=== PATIENT | female | born 1980 | race African-American/Black ===

== ENCOUNTER 2017-06-11 22:46 | Emergency (ER) | payer MEDICAID, OTHER ==
[~2017-06-11] VITALS: Ht 157.5 cm; Wt 104.0 kg
[~2017-06-11 22:46] MED LIST: IBUP600 PO; OXYC1SOL5 PO; PRENTAB8
[2017-06-11 22:47] VITALS: BP 138/87; PULSE 102; RESP 18; TEMP 98.5; O2SAT 97
== END 2017-06-12 01:40 | disposition left against medical advice (07) ==
LOC: NED 22:46
DX: R06.02 Shortness of breath (principal); Z53.21 Procedure and treatment not carried out due to patient leaving prior to being seen by health care provider
CPT/HCPCS: 99281

== ENCOUNTER 2017-07-21 22:37 | Observation (INO) | payer OTHER ==
[~2017-07-21] VITALS: Ht 154.9 cm; Wt 109.5 kg
[2017-07-21 22:39] VITALS: BP 134/80; PULSE 115; RESP 24; TEMP 98.6; O2SAT 93
[2017-07-21] MEDS ORDERED: ETON1IMP I-DERMAL (22:49)
[2017-07-21] MEDS: RESP: ALBUTEROL 2.5 MG/IPRATROPIUM 0.5 MG NEB (SCH) INH ×2 (23:28→23:29)
[2017-07-21 23:30] VITALS: O2SAT 97
[2017-07-21] MEDS ORDERED: methylPREDNISolone SOD SUCC 125 MG/2 ML VIAL IVP ONE (23:30)
[2017-07-21] MEDS ORDERED: SODIUM CHLORIDE 0.9% FLUSH 10 ML FLUSH IVF PRN (23:30)
[2017-07-21 23:31] VITALS: BP 137/90; PULSE 107; RESP 18; O2SAT 97
[2017-07-21 23:32] VITALS: O2SAT 97
[2017-07-21] MEDS ORDERED: ALLE60TA PO (23:32)
[2017-07-21 23:50] LABS: BASOPHIL # 0.1 TH/MM3 (0-0.2); BASOPHIL % 0.3 % (0.0-2.0); EOSINOPHIL # 0.2 TH/MM3 (0-0.4); EOSINOPHIL % 0.9 % (0.0-4.0); HEMATOCRIT 38.7 % (35.0-46.0); HEMO FLAGS DIFF FINAL; LYMPH % 7.1 % (9.0-44.0); LYMPHOCYTE # 1.5 TH/MM3 (1.0-4.8); MEAN CORPUSCULAR HEMOGLOBIN 26.8 PG (27.0-34.0); MEAN CORPUSCULAR HGB CONC 32.7 % (32.0-36.0); MONO % 3.7 % (0.0-8.0); PLATELET COUNT 247 TH/MM3 (150-450); RED BLOOD COUNT 4.72 MIL/MM3 (4.00-5.30); RED CELL DISTRIBUTION WIDTH 15.8 % (11.6-17.2); WHITE BLOOD COUNT 21.6 TH/MM3 (4.0-11.0)
--- NOTE | 2017-07-22 00:06 | RADRPT ---
EXAM DATE/TIME: 07/21/2017 23:32 [place] COMPARISON: No previous studies available for comparison. INDICATIONS : Shortness of breath. MEDICAL HISTORY : None. SURGICAL HISTORY : None. ENCOUNTER: Initial ACUITY: 1 day PAIN SCORE: 0/10 LOCATION: Bilateral chest FINDINGS: A single view of the chest demonstrates the lungs to be symmetrically aerated without evidence of mas s, infiltrate or effusion. The cardiomediastinal contours are unremarkable. Osseous structures are intact. CONCLUSION: No evidence of acute cardiopulmonary disease. Alvarez Ferguson MD on July 22, 2017 at 0:04 Board Certified Radiologist. This report was verified electronically.
[2017-07-22 00:17] LABS: MAGNESIUM 1.7 MG/DL (1.5-2.5); POTASSIUM 3.9 MEQ/L (3.5-5.1)
[2017-07-22] MEDS ORDERED: SODIUM CHLOR 0.9% 1000 ML INJ 1,000 ML IV ONE ×2 (01:00→02:15)
[2017-07-22] MEDS ORDERED: RESP: ALBUTEROL 2.5 MG/IPRATROPIUM 0.5 MG NEB (SCH) NEB ONE (01:00)
[2017-07-22] MEDS ORDERED: cefTRIAXone INJ 1,000 MG in SODIUM CHLORIDE 0.9% INJ 100 ML IV ONE ×2 (01:00→02:15)
[2017-07-22 02:02] LABS: BLOOD, URINE SMALL (NEG); COMMENT (UR) CULT NOT INDICATED; GLUCOSE,URINE NEG (NEG); KETONE, URINE NEG (NEG); MUCUS URINE FEW /lpf (OCC); NITRITE,URINE NEG (NEG); SQUAMOUS EPITHELIAL CELL URINE <1 /hpf (0-5); URINE COLOR LIGHT-YELLOW (YELLW/STRAW)
[2017-07-22 02:03] LABS: CULTURE IF INDICATED CULT NOT INDICATED
--- NOTE | 2017-07-22 02:14 | PD ---
HPI Chief Complaint: Respiratory Symptoms Time Seen by Provider: 23:18 Travel History International Travel<30 days: No Contact w/Intl Traveler<30days: No Traveled to known affect area: No History of Present Illness HPI 37 year-old female presents to the emergency department by private transportation for complaint of difficulty with breathing and wheezing. Patient reports that she has a history of environmental allergens but denies personal history of asthma. Patient is a nonsmoker. Patient states she has a nexplanon and is not having pleuritic chest pain or hemoptysis. Patient was recently seen by her primary care provider within the last 3 weeks and was placed on a course of oral antibiotic and 6 days of steroid therapy. Patient has been off medication 2 weeks and symptoms are worsened in the last few days. Patient states that she has had wheezing briefly in the past but this episode has been more persistent and worsening to now that she presents to the emergency department for further evaluation. No chest pain no abdominal pain no flank pain. Patient also denies any recent long distance travel protracted bedrest her surgical procedure. [facility] Past Medical History Narrative Medical Clinical obesity no tobacco use nursing notes reviewed Medical History: Denies Significant Hx Influenza Vaccination: No ?: Not LMP: 06/22/2017 Past Surgical History Section: Yes (X2) Social History Alcohol Use: Yes (ONCE WEEKLY) Tobacco Use: No Substance Use: No Allergies-Medications (Allergen,Severity, Reaction): Coded Allergies: No Known Allergies (Unverified , 07/21/17) Reported Meds & Prescriptions Reported Meds & Active Scripts Active Reported Ditpi Allergy (Fexofenadine HCl) 60 Mg Tab 60 Mg PO BID Nexplanon Implant (Etonogestrel Implant) 68 Mg Imp 68 Mg I-DERMAL ONCE Review of Systems Except as stated in HPI: all other systems reviewed are Neg Physical Exam Narrative GENERAL: Well-developed well-nourished female in moderate respiratory distress. SKIN: Warm and dry. HEAD: Normocephalic. EYES: No scleral icterus. No injection or drainage. NECK: Supple, trachea midline. No JVD or lymphadenopathy. CARDIOVASCULAR: Regular rate and rhythm without murmurs, gallops, or rubs. RESPIRATORY: Breath sounds equal bilaterally with diffuse wheezing to auscultation to all graves. No accessory muscle use. GASTROINTESTINAL: Abdomen soft, non-tender, nondistended. MUSCULOSKELETAL: No cyanosis, or edema. BACK: Nontender without obvious deformity. No CVA tenderness. Data Data Last Documented VS Vital Signs Date Time Temp Pulse Resp B/P (MAP) Pulse Ox O2 Delivery O2 Flow Rate FiO2 07/22/17 02:20 101 20 140/86 (104) 93 Nasal Cannula 2.00 07/21/17 22:39 98.6 Orders Orders Complete Blood Count With Diff (07/21/17 23:18) Basic Metabolic Panel (Bmp) (07/21/17 23:18) Magnesium (Mg) (07/21/17 23:18) Iv Access Insert/Monitor (07/21/17 23:18) Ecg Monitoring (07/21/17 23:18) Oximetry (07/21/17 23:18) Oxygen Administration (07/21/17 23:18) Sodium Chloride 0.9% Flush (Ns Flush) (07/21/17 23:30) Methylprednisolone So Succ Inj (Solumedr (07/21/17 23:30) Albuterol-Ipratropium Neb (Duoneb Neb) (07/21/17 23:30) Chest, Single Ap (07/21/17 ) Sodium Chlor 0.9% 1000 Ml Inj (Ns 1000 M (07/22/17 01:00) Urinalysis - C+S If Indicated (07/22/17 00:48) Lactic Acid (07/22/17 00:48) Ceftriaxone Inj (Rocephin Inj) (07/22/17 01:00) Albuterol-Ipratropium Neb (Duoneb Neb) (07/22/17 01:00) Sodium Chlor 0.9% 1000 Ml Inj (Ns 1000 M (07/22/17 02:15) Ceftriaxone Inj (Rocephin Inj) (07/22/17 02:15) Admit Order (Ed Use Only) (07/22/17 ) ^ Saline Lock (07/22/17 02:21) Resp Oxygen Pieter C Titrat 1-4 L (07/22/17 ) Notify Dr: Other (07/22/17 02:21) Sodium Chloride 0.9% Flush (Ns Flush) (07/22/17 09:00) Sodium Chloride 0.9% Flush (Ns Flush) (07/22/17 02:30) Labs Laboratory Tests Test 07/21/17 23:30 07/22/17 01:04 07/22/17 01:30 White Blood Count 21.6 TH/MM3 Red Blood Count 4.72 MIL/MM3 Hemoglobin 12.7 GM/DL Hematocrit 38.7 % Mean Corpuscular Volume 82.0 FL Mean Corpuscular Hemoglobin 26.8 PG Mean Corpuscular Hemoglobin Concent 32.7 % Red Cell Distribution Width 15.8 % Platelet Count 247 TH/MM3 Mean Platelet Volume 9.0 FL Neutrophils (%) (Auto) 88.0 % Lymphocytes (%) (Auto) 7.1 % Monocytes (%) (Auto) 3.7 % Eosinophils (%) (Auto) 0.9 % Basophils (%) (Auto) 0.3 % Neutrophils # (Auto) 19.0 TH/MM3 Lymphocytes # (Auto) 1.5 TH/MM3 Monocytes # (Auto) 0.8 TH/MM3 Eosinophils # (Auto) 0.2 TH/MM3 Basophils # (Auto) 0.1 TH/MM3 CBC Comment DIFF FINAL Differential Comment Blood Urea Nitrogen 12 MG/DL Creatinine 0.59 MG/DL Random Glucose 128 MG/DL Calcium Level 8.8 MG/DL Magnesium Level 1.7 MG/DL Sodium Level 135 MEQ/L Potassium Level 3.9 MEQ/L Chloride Level 103 MEQ/L Carbon Dioxide Level 25.0 MEQ/L Anion Gap 7 MEQ/L Estimat Glomerular Filtration Rate 139 ML/MIN Lactic Acid Level 1.4 mmol/L Urine Color LIGHT-YELLOW Urine Turbidity CLEAR Urine pH 5.0 Urine Specific [place] 1.005 Urine Protein NEG mg/dL Urine Glucose (UA) NEG mg/dL Urine Ketones NEG mg/dL Urine Occult Blood SMALL Urine Nitrite NEG Urine Bilirubin NEG Urine Urobilinogen LESS THAN 2.0 MG/DL Urine Leukocyte Esterase NEG Urine RBC LESS THAN 1 /hpf Urine WBC 1 /hpf Urine Squamous Epithelial Cells <1 /hpf Urine Mucus FEW /lpf Microscopic Urinalysis Comment CULT NOT INDICATED MDM Medical Decision Making Medical Screen Exam Complete: Yes Emergency Medical Condition: Yes Medical Record Reviewed: Yes Interpretation(s) Last Impressions Chest X-Ray 07/21/17 0000 Signed Impressions: Service Date/Time: Friday, July 21, 2017 23:32 - CONCLUSION: No evidence of acute cardiopulmonary disease. Alvarez Ferguson MD CBC & BMP Diagram 07/21/17 23:30 Calcium Level 8.8, Magnesium Level 1.7 Vital Signs Date Time Temp Pulse Resp B/P (MAP) Pulse Ox O2 Delivery O2 Flow Rate FiO2 07/22/17 02:20 101 20 140/86 (104) 93 Nasal Cannula 2.00 07/21/17 23:32 97 Room Air 07/21/17 23:31 107 18 137/90 (106) 97 Room Air 07/21/17 23:31 97 Room Air 07/21/17 23:30 97 Nasal Cannula 2.00 07/21/17 22:39 98.6 115 24 134/80 (98) 93 Room Air Differential Diagnosis Exacerbation asthma, bronchospasm, bronchitis, pneumonia, PE also consider CHF Narrative Course IV access obtained specimens collected and sent for resulting patient administered Solu-Medrol 125 mg IV and 3 DuoNeb updrafts as well as IV fluid bolus Patient noting improvement with ongoing support with supplemental oxygen and after updraft treatments Advise resulted chest x-ray reveals no lobar infiltrate however patient does have leukocytosis of 21,000; lactic acid is not elevated Fiaft-fw-dash hCG is negative Patient meets SIRS criteria Patient reassessed and continues to have expiratory wheezing and some work of breathing therefore will admit for ongoing bronchodilator therapy IV fluids and steroid therapy. Patient is agreeable to admission. Medicine service contacted and patient admitted Sepsis Criteria SIRS Criteria (2 or more): Heart rate over 90, WBC > 69350, < 4000 or > 10% bands Sepsis Criteria (SIRS+source): Infect source susp/known (bronchitis) Physician Communication Physician Communication Patient's case discussed with Alvarez Coronado request patient to be admitted to Dr. Ruelas service Diagnosis Primary Impression: Bronchitis Admitting Information Admitting Physician Requests: Observation Millie Benítez MD Jul 22, 2017 02:14
[2017-07-22 02:20] VITALS: BP 140/86; PULSE 101; RESP 20; O2SAT 93
[2017-07-22] MEDS ORDERED: SODIUM CHLORIDE 0.9% FLUSH 10 ML FLUSH IVF PRN (02:30)
[2017-07-22] MEDS ORDERED: SODIUM CHLORIDE 0.9% FLUSH 10 ML FLUSH IV FLUSH PRN (03:15)
[2017-07-22] MEDS ORDERED: NALOXONE HCL 0.4 MG/ML AMP IV PRN (03:15)
[2017-07-22] MEDS ORDERED: ACETAMINOPHEN 325 MG TAB PO PRN ×2 (03:15)
[2017-07-22] MEDS ORDERED: SENNOSIDES 8.6 MG TAB PO PRN (03:15)
[2017-07-22] MEDS ORDERED: ONDANSETRON HCL 4 MG/2 ML VIAL IVP PRN (03:15)
[2017-07-22] MEDS ORDERED: RESP: ALBUTEROL 1.25 MG/3 ML NEB (PRN) NEB (03:15)
[2017-07-22] MEDS: RESP: ALBUTEROL 1.25 MG/3 ML NEB (SCH) NEB ×5 (03:22→20:19)
[2017-07-22] MEDS: MONTELUKAST SODIUM 10 MG TAB PO SCH ×2 (05:10→22:35)
[2017-07-22] MEDS: LORATADINE 10 MG TAB PO SCH ×2 (05:10→10:06)
[2017-07-22] MEDS: methylPREDNISolone SOD SUCC 125 MG/2 ML VIAL IV PUSH SCH ×3 (05:48→17:38)
[2017-07-22] MEDS: ENOXAPARIN SODIUM 40 MG/0.4 ML SYRINGE SQ SCH (05:48)
[2017-07-22 08:00] VITALS: BP 127/63; PULSE 80; RESP 18; TEMP 98.3; O2SAT 97
--- NOTE | 2017-07-22 08:24 | MH ---
cc: MARIA RUELAS DATE OF ADMISSION: 07/22/[address] Donn Giang. CHIEF COMPLAINT Shortness of breath. HISTORY OF PRESENT ILLNESS This is a pleasant 37-year-old female patient who has allergies. She is unsure of what exactly she is allergic to. She has been taking Dipti. The only thing different she can think of is she got a new cat about 4 months ago. About two months ago she started having allergy symptoms. She developed wheezing and shortness of breath. She saw Dr. Giang about a month ago and was placed on steroids and antibiotics. She was feeling much better after taking these until July 21, 2017, she developed wheezing, shortness of breath, she was coughing, bringing up some clear mucous, she could not even speak a whole sentence without feeling like she could not breathe. She had no fever or chills, nausea, vomiting, her appetite was stable. She had run out of her Dipti for the last several days. Because of how short of breath she was and it was Saturday evening, she decided to come to the emergency room. She was started on steroids and antibiotic and she is feeling much better at this point. She is still wheezy, especially when she sits up and moves around but she can speak full sentences and is not short of breath at rest. MEDICATIONS ON ADMISSION The patient has implanted control in her left upper extremity. ALLERGIES None. PAST MEDICAL HISTORY None. PAST SURGICAL HISTORY Two section and D&Cs. SOCIAL HISTORY Tobacco: None. Alcohol: Occasional. Drugs: None. FAMILY HISTORY Noncontributory. REVIEW OF SYSTEMS A 10-point review of systems was done with the patient, there is no other pertinent findings other than listed in the HPI. PHYSICAL EXAMINATION VITAL SIGNS: Last heart rate was 101, respirations 20, blood pressure 140/86, pulse oximetry was at 93 on 2 liters. GENERAL: This is a 37-year-old female asleep and she awakens easily. She is in no distress. HEENT: Mucous membranes are moist. No jaundice. NECK: Supple. CARDIOVASCULAR SYSTEM: Regular rate and rhythm. RESPIRATORY SYSTEM: Scattered expiratory wheezes. GASTROINTESTINAL SYSTEM: Overweight. Bowel sounds are present. GENITOURINARY SYSTEM: No CVA tenderness. MUSCULOSKELETAL SYSTEM: No edema. Distal pulses are palpable. NEUROLOGICAL EXAM: Awake, alert and oriented x4. Speech is clear and fluent. Moving all of her extremities freely. INVESTIGATIONS White count 21.6, hemoglobin 12.7, platelets 247. Lactic acid was 1.4, random glucose nonfasting was 128. Sodium 135, fasting 3.9. Urinalysis showed small occult blood, culture is not indicated. test is pending. Chest x-ray is clear. IMPRESSION 1. Bronchitis. 2. Reactive airway disease. 3. ____ with leukocytosis and tachycardia. DISCUSSION The patient is placed on observation status to Dr. Ruelas's service. Plan is to continue IV steroids. Will start her on Singulair as well as antihistamine. Continue nebulized treatments. Will recheck labs in the morning. Place her on DVT prophylaxis. Will make further recommendations as her case progresses. Estimated length of stay is less than two days. Anticipated discharge is home. Dictated by: SADE Schroeder aMria Ruelas MD JP/REYNA /3:18 AM /7:56 AM pt was seen and examined by undersigned on the day of admission with female rn and mother at bedside chart was reviewed in detail dw pt in detail agree with above plan of care MTDD
[2017-07-22] MEDS ORDERED: SODIUM CHLORIDE 0.9% FLUSH 10 ML FLUSH IV FLUSH SCH (09:00)
[2017-07-22] MEDS: SODIUM CHLORIDE 0.9% FLUSH 10 ML FLUSH IV FLUSH SCH ×2 (10:07→22:36)
[2017-07-22 12:00] VITALS: BP 131/82; PULSE 86; RESP 18; TEMP 97.9; O2SAT 97
[2017-07-22 16:05] VITALS: BP 132/86; PULSE 78; RESP 18; TEMP 98.6; O2SAT 97
[2017-07-22 19:45] VITALS: BP 164/93; PULSE 95; RESP 18; TEMP 98.5; O2SAT 96
[2017-07-22 20:21] VITALS: O2SAT 96
[2017-07-23 00:05] VITALS: BP 130/66; PULSE 69; RESP 18; TEMP 98.1; O2SAT 96
[2017-07-23] MEDS: methylPREDNISolone SOD SUCC 125 MG/2 ML VIAL IV PUSH SCH ×3 (01:52→11:18)
[2017-07-23 03:32] VITALS: BP 117/75; PULSE 61; RESP 18; TEMP 97.7; O2SAT 97
[2017-07-23] MEDS: RESP: ALBUTEROL 1.25 MG/3 ML NEB (SCH) NEB ×4 (03:36→11:20)
[2017-07-23] MEDS: ENOXAPARIN SODIUM 40 MG/0.4 ML SYRINGE SQ SCH (06:37)
[2017-07-23 06:47] LABS: AUTOMATED NEUTROPHIL # 18.8 TH/MM3 (1.8-7.7); BASOPHIL # 0.1 TH/MM3 (0-0.2); BASOPHIL % 0.4 % (0.0-2.0); HEMATOCRIT 38.4 % (35.0-46.0); HEMO FLAGS DIFF FINAL; LYMPH % 7.1 % (9.0-44.0); LYMPHOCYTE # 1.5 TH/MM3 (1.0-4.8); MEAN CELL VOLUME 83.7 FL (80.0-100.0); MEAN CORPUSCULAR HEMOGLOBIN 27.7 PG (27.0-34.0); MEAN CORPUSCULAR HGB CONC 33.1 % (32.0-36.0); MONO % 2.3 % (0.0-8.0); NEUT % 90.2 % (16.0-70.0); PLATELET COUNT 246 TH/MM3 (150-450); RED BLOOD COUNT 4.59 MIL/MM3 (4.00-5.30); RED CELL DISTRIBUTION WIDTH 16.4 % (11.6-17.2); WHITE BLOOD COUNT 20.8 TH/MM3 (4.0-11.0)
--- NOTE | 2017-07-23 07:18 | HHI.PR ---
Subjective Subjective Remarks Currently no shortness of breath on room air Sitting up in bed Denies any pain or distress Afebrile (Elizabet Moreira) Review of Systems Constitutional Constitutional: Weakness (generalized but improved) Constitutional Remarks 10 point ROS done positives noted (Elizabet Moreira) Pulmonary Respiratory: Coughing (occasional, patient has seasonal allergies) (Elizabet Moreira) Musculoskeletal MS Remarks Obese (Elizabet Moreira) Psychiatric Psychiatric: Normal Mood (Elizabet Moreira) Vitals/Results Vital Signs Vital Signs Date Time Temp Pulse Resp B/P (MAP) Pulse Ox O2 Delivery O2 Flow Rate FiO2 07/23/17 03:32 97.7 61 18 117/75 (89) 97 07/23/17 00:05 98.1 69 18 130/66 (87) 96 07/22/17 20:21 96 21 07/22/17 19:45 98.5 95 18 164/93 (116) 96 07/22/17 16:05 98.6 78 18 132/86 (101) 97 07/22/17 12:00 97.9 86 18 131/82 (98) 97 07/22/17 08:00 98.3 80 18 127/63 (84) 97 (Elizabet Moreira) CBC/BMP: 07/23/17 0430 07/21/17 2330 Lab Results Laboratory Tests Test 07/23/17 04:30 White Blood Count 20.8 TH/MM3 Red Blood Count 4.59 MIL/MM3 Hemoglobin 12.7 GM/DL Hematocrit 38.4 % Mean Corpuscular Volume 83.7 FL Mean Corpuscular Hemoglobin 27.7 PG Mean Corpuscular Hemoglobin Concent 33.1 % Red Cell Distribution Width 16.4 % Platelet Count 246 TH/MM3 Mean Platelet Volume 10.0 FL Neutrophils (%) (Auto) 90.2 % Lymphocytes (%) (Auto) 7.1 % Monocytes (%) (Auto) 2.3 % Eosinophils (%) (Auto) 0.0 % Basophils (%) (Auto) 0.4 % Neutrophils # (Auto) 18.8 TH/MM3 Lymphocytes # (Auto) 1.5 TH/MM3 Monocytes # (Auto) 0.5 TH/MM3 Eosinophils # (Auto) 0.0 TH/MM3 Basophils # (Auto) 0.1 TH/MM3 CBC Comment DIFF FINAL Differential Comment Current Medications Administered Medications Medications (Trade) Dose Ordered Sig/Niecy Route PRN Reason Start Time Stop Time Status Last Admin Dose Admin Sodium Chloride (NS Flush) 2 ml BID IV FLUSH 07/22/17 09:00 07/23/17 07:46 Sennosides (Senokot) 17.2 mg Q12H PRN PO MODERATE - SEVERE CONSTIPATION 07/22/17 03:15 07/23/17 07:45 Albuterol Sulfate (Albuterol Neb) 1.25 mg Q4HR NEB NEB 07/22/17 04:00 07/23/17 07:43 Methylprednisolone Sodium Succinate (SoluMEDROL INJ) 60 mg Q6H IV PUSH 07/22/17 06:00 07/23/17 06:38 Enoxaparin Sodium (Lovenox Inj) 40 mg Q24H SQ 07/22/17 06:00 07/23/17 06:37 Montelukast Sodium (Singulair) 10 mg HS PO 07/22/17 03:15 07/22/17 22:35 Loratadine (Claritin) 10 mg DAILY PO 07/22/17 03:15 07/23/17 07:46 (Elizabet Moreira) Physical Exam General General Appearance: Well Developed, No Acute Distress, Comfortable, Obese (Elizabet Moreira) Eyes Eye Exam: Pupils Equal, Pupils Reactive (Elizabet Moreira) Ears & Nose Ears & Nose Exam: Nasal Mucosa [place] (Elizabet Moreira) Throat Throat Exam: Oral Mucosa [place] & Moist (Elizabet Moreira) Neck Neck Exam: Neck Supple (Elizabet Moreira) Pulmonary Resp Exam: Clear Bilaterally, Diminished Breath Sounds (mild, no active wheeze) (Elizabet Moreira) Cardiology CV Exam: Regular (Elizabet Moreira) Gastrointestinal/Abdomen GI Exam: Soft, Non-Tender, Bowel Sounds Present (Elizabet Moreira) Genitourinary Exam: Clear Urine (Elizabet Moreira) Musculoskeletal MS Exam: Joints Intact (Elizabet Moreira) Integumentary Skin Exam: Warm, Dry, Intact (Elizabet Moreira) Extremeties Extremities Exam: No Edema (Elizabet Moreira) Neurologic Neuro Exam: Alert, Awake, Oriented, Speech Clear, Moving All Extremities (Elizabet Moreira) Assessment/Plan Assessment/Plan Bronchitis. O2 when necessary, currently on room air without any shortness of breath, duo nebs Reactive airway disease., History of seasonal allergies IV steroids, antihistamine, Singulair Stable symptoms leukocytosis Trending down, probable secondary to IV steroids, continue to monitor her symptoms, responding well to allergy medications tachycardia Resolved Constipation, laxative ordered for today, no BM in 3 days Patient's symptoms have improved with medication, discharge planning probable today after seen per Dr. Ruelas, seen on his behalf Discussed with patient Discussed with nurse (Elizabet Moreira) Assessment/Plan Patient seen and examined is unable with RN at bedside Labs reviewed [place] Medications reviewed patient Discussed with patient in detail about DC planning Plan to discharge her home Overall is stable and good condition (Jie Ruelas MD) Elizabet Moreira Jul 23, 2017 07:18 Jie Ruelas MD Jul 23, 2017 12:10
[2017-07-23 07:21] VITALS: BP 140/72; PULSE 64; RESP 18; TEMP 98; O2SAT 95
[2017-07-23 07:43] VITALS: O2SAT 97
[2017-07-23] MEDS: SODIUM CHLORIDE 0.9% FLUSH 10 ML FLUSH IV FLUSH SCH (07:46)
[2017-07-23] MEDS: LORATADINE 10 MG TAB PO SCH (07:46)
[2017-07-23] MEDS ORDERED: MAGNESIUM HYDROXIDE SUSP 30 ML CUP PO PRN (08:15)
[2017-07-23] MEDS ORDERED: BISACODYL EC 5 MG TABEC PO ONE (08:45)
[2017-07-23 11:55] VITALS: BP 133/87; PULSE 85; RESP 18; TEMP 98.3; O2SAT 97
[2017-07-23] MEDS ORDERED: ALBUAER3 INH (12:16)
[2017-07-23] MEDS ORDERED: PRED10 PO (12:16)
--- NOTE | 2017-07-23 12:25 | HHI.DS ---
Discharge Summary Admission Date Jul 22, 2017 at 02:23 Admitting Diagnosis acute bronchitis/bronchospasm (1) Tachycardia ICD Codes: R00.0 - Tachycardia, unspecified Diagnosis: Secondary (2) Reactive airway disease ICD Codes: J45.909 - Unspecified asthma, uncomplicated Diagnosis: Principal Brief History Patient was admitted because of the shortness of breath. Patient has shortness of breath with wheezing and cough. She is a bronchospasm. For which her primary care doctor gave her antibiotics as well as steroids. When she came to the hospital she was tachycardic and also has leukocytosis secondary to steroids. Patient was given a steroid and bronchodilators. Now patient is improved and she is feeling good. Has no complaint. Patient is overall a stable and good condition. Plan to discharge her home on a steroid for few days. And albuterol inhaler. Also advised to follow primary care doctor as outpatient. She understood very well. She also had tachycardia which is resolved. CBC/BMP: 07/23/17 0430 07/21/17 2330 Significant Findings Laboratory Tests Test 07/21/17 23:30 07/22/17 01:04 07/22/17 01:30 07/23/17 04:30 White Blood Count 21.6 TH/MM3 (4.0-11.0) 20.8 TH/MM3 (4.0-11.0) Mean Corpuscular Hemoglobin 26.8 PG (27.0-34.0) Neutrophils (%) (Auto) 88.0 % (16.0-70.0) 90.2 % (16.0-70.0) Lymphocytes (%) (Auto) 7.1 % (9.0-44.0) 7.1 % (9.0-44.0) Neutrophils # (Auto) 19.0 TH/MM3 (1.8-7.7) 18.8 TH/MM3 (1.8-7.7) Random Glucose 128 MG/DL (74-106) Sodium Level 135 MEQ/L (136-145) Urine Occult Blood SMALL (NEG) Urine Mucus FEW /lpf (OCC) Pt Condition on Discharge: Good Discharge Disposition: Discharge Home Discharge Instructions DIET: Follow Instructions for: Heart Healthy Diet Activities you can perform: Weight Bearing as Mini Follow up Referrals: PCP Follow-up - 1 Week New Medications: Albuterol 8.5 GM Inh (Proair Hfa 8.5 GM Inh) 90 Mcg/Act Aer 1 PUFF INH Q4H PRN for SHORTNESS OF BREATH, #1 INHALER 0 Refills 108 mcg/actuation Prednisone (Prednisone) 10 Mg Tab 10 MG PO DAILY for inflammation for 7 Days, TAB 0 Refills Continued Medications: Etonogestrel Implant (Nexplanon Implant) 68 Mg Imp 68 MG I-DERMAL ONCE, #1 UNIT Fexofenadine (Dipti Allergy) 60 Mg Tab 60 MG PO BID for Allergy Management, #60 TAB 0 Refills Jie Ruelas MD Jul 23, 2017 12:25
== END 2017-07-23 12:55 | disposition home or self-care (01) ==
LOC: NEPC 22:37 → NEDA 07-22 02:23 → NEPGCP 07-22 04:12
PROVIDERS: ADMIT Specialist; ATTEND Specialist
DX: J20.9 Acute bronchitis, unspecified (principal); J45.909 Unspecified asthma, uncomplicated; R00.0 Tachycardia, unspecified; K59.00 Constipation, unspecified; D72.829 Elevated white blood cell count, unspecified
CPT/HCPCS: 71010; 80048; 81001; 83605; 83735; 84703; 85025; 94640; 94664; 96361; 96365; 96372; 96375; 96376; 99285; G0378; J0696; J1650; J2930; J7030; J7613

== ENCOUNTER 2017-11-24 22:06 | Inpatient (IN) | payer OTHER ==
[~2017-11-24] VITALS: Ht 165.1 cm; Wt 105.0 kg
[~2017-11-24 22:06] MED LIST changes: +ALBUAER3 INH; +ALLE60TA PO; +ETON1IMP I-DERMAL; -IBUP600 PO; -OXYC1SOL5 PO; +PRED10 PO; -PRENTAB8
[2017-11-24 22:08] VITALS: BP 175/94; PULSE 118; RESP 24; TEMP 97.9; O2SAT 92
--- NOTE | 2017-11-24 22:28 | PD ---
HPI Chief Complaint: Respiratory Symptoms Time Seen by Provider: 22:22 Travel History International Travel<30 days: No Contact w/Intl Traveler<30days: No Traveled to known affect area: No History of Present Illness HPI 37 year-old female presents to the emergency department by private transportation for complaint of one week of shortness of breath with progressive worsening using [id number] Bronkaid without relief and initially cough productive of yellow sputum and now nonproductive cough. Patient denies any known chronic medical conditions or respiratory illness although was hospitalized July 2007 bronchitis/pneumonia and similar type presentation. Patient does have Plan and denies tobacco use family history of clotting disorder or lower any pain or swelling or pleuritic chest pain; also no recent long distance travel protracted bedrest her surgical procedure. Patient has not had any fever or chills. Patient denies any abdominal pain. Patient was noted in triage to have room air O2 saturation of 85%. PFSH Past Medical History Narrative Medical Reactive airways disease, bronchitis; no tobacco use: Nursing notes reviewed Asthma: No Blood Disorders: No Heart Rhythm Problems: No Cancer: No Cardiovascular Problems: No High Cholesterol: No Chemotherapy: No Chest Pain: No Congestive Heart Failure: No COPD: No Diabetes: No Endocrine: No Gastrointestinal Disorders: No Genitourinary: No Hypertension: No Immune Disorder: No Implanted Vascular Access Dvce: No Musculoskeletal: No Neurologic: No Psychiatric: No Reproductive: No Respiratory: No Immunizations Current: Yes Radiation Therapy: No Thyroid Disease: No Tetanus Vaccination: < 5 Years Influenza Vaccination: No ?: Unknown Past Surgical History Section: Yes (X2) Other Surgery: Yes (2 c- sections ) Social History Alcohol Use: Yes (ONCE WEEKLY) Tobacco Use: No Substance Use: No Allergies-Medications (Allergen,Severity, Reaction): Coded Allergies: No Known Allergies (Unverified Allergy, Unknown, 11/25/17) Reported Meds & Prescriptions Reported Meds & Active Scripts Active Review of Systems Except as stated in HPI: all other systems reviewed are Neg Physical Exam Narrative GENERAL: Well-developed well-nourished female in obvious respiratory distress demonstrating work of breathing SKIN: Warm and dry. HEAD: Normocephalic. EYES: No scleral icterus. No injection or drainage. NECK: Supple, trachea midline. No JVD or lymphadenopathy. CARDIOVASCULAR: Regular rate and rhythm without murmurs, gallops, or rubs. RESPIRATORY: Breath sounds equal bilaterally diffuse bilateral wheezing left greater than right. No accessory muscle use. GASTROINTESTINAL: Abdomen soft, non-tender, nondistended. MUSCULOSKELETAL: No cyanosis, or edema. BACK: Nontender without obvious deformity. No CVA tenderness. Data Data Last Documented VS Vital Signs Date Time Temp Pulse Resp B/P (MAP) Pulse Ox O2 Delivery O2 Flow Rate FiO2 11/24/17 22:27 95 Nasal Cannula 4.00 11/24/17 22:24 38 11/24/17 22:08 97.9 118 175/94 (121) Orders Orders Complete Blood Count With Diff (11/24/17 22:22) Basic Metabolic Panel (Bmp) (11/24/17 22:22) B-Type Natriuretic Peptide (11/24/17 22:22) Magnesium (Mg) (11/24/17 22:22) Troponin I (11/24/17 22:22) Influenzae A/B Antigen (11/24/17 22:22) Blood Culture (11/24/17 22:22) Iv Access Insert/Monitor (11/24/17 22:22) Electrocardiogram (11/24/17 22:22) Ecg Monitoring (11/24/17 22:22) Oximetry (11/24/17 22:22) Oxygen Administration (11/24/17 22:22) Chest, Single Ap (11/24/17 22:22) Sodium Chloride 0.9% Flush (Ns Flush) (11/24/17 22:30) Methylprednisolone So Succ Inj (Solumedr (11/24/17 22:30) Albuterol-Ipratropium Neb (Duoneb Neb) (11/24/17 22:30) Sodium Chlor 0.9% 1000 Ml Inj (Ns 1000 M (11/24/17 23:15) Lactic Acid (11/24/17 23:06) Ceftriaxone Inj (Rocephin Inj) (11/24/17 23:15) Azithromycin Inj (Zithromax Inj) (11/24/17 23:15) Admit Order (Ed Use Only) (11/24/17 ) Registered Nurse Supervisor / Telemetry DEMETRIUS.Q8H (11/24/17 23:55) Activity Oob With Assistance (11/24/17 23:55) Notify Dr: Other (11/24/17 23:55) Labs Laboratory Tests Test 11/24/17 22:30 11/24/17 23:30 White Blood Count 22.5 TH/MM3 Red Blood Count 4.62 MIL/MM3 Hemoglobin 12.8 GM/DL Hematocrit 38.7 % Mean Corpuscular Volume 83.7 FL Mean Corpuscular Hemoglobin 27.8 PG Mean Corpuscular Hemoglobin Concent 33.2 % Red Cell Distribution Width 14.8 % Platelet Count 259 TH/MM3 Mean Platelet Volume 8.8 FL Neutrophils (%) (Auto) 87.6 % Lymphocytes (%) (Auto) 7.0 % Monocytes (%) (Auto) 4.0 % Eosinophils (%) (Auto) 1.0 % Basophils (%) (Auto) 0.4 % Neutrophils # (Auto) 19.7 TH/MM3 Lymphocytes # (Auto) 1.6 TH/MM3 Monocytes # (Auto) 0.9 TH/MM3 Eosinophils # (Auto) 0.2 TH/MM3 Basophils # (Auto) 0.1 TH/MM3 CBC Comment DIFF FINAL Differential Comment Blood Urea Nitrogen 12 MG/DL Creatinine 0.57 MG/DL Random Glucose 115 MG/DL Calcium Level 9.0 MG/DL Magnesium Level 1.8 MG/DL Sodium Level 134 MEQ/L Potassium Level 4.1 MEQ/L Chloride Level 105 MEQ/L Carbon Dioxide Level 21.6 MEQ/L Anion Gap 7 MEQ/L Estimat Glomerular Filtration Rate 144 ML/MIN Troponin I LESS THAN 0.02 NG/ML B-Type Natriuretic Peptide 10 PG/ML Lactic Acid Level 0.8 mmol/L MDM Medical Decision Making Medical Screen Exam Complete: Yes Emergency Medical Condition: Yes Medical Record Reviewed: Yes Interpretation(s) EKG: Sinus tachycardia rate 110 artifact present no acute ST elevation or injury pattern change noted lactic: 0.8, not elevated Vital Signs Date Time Temp Pulse Resp B/P (MAP) Pulse Ox O2 Delivery O2 Flow Rate FiO2 11/24/17 22:27 95 Nasal Cannula 4.00 11/24/17 22:24 38 95 Nasal Cannula 4.00 11/24/17 22:08 97.9 118 24 175/94 (121) 92 Room Air Last Impressions Chest X-Ray 11/24/17 3671 Signed Impressions: Service Date/Time: Friday, November 24, 2017 22:33 - CONCLUSION: Right upper lobe airspace disease. Sanchez Gonzalez MD CBC & BMP Diagram 11/24/17 22:30 Calcium Level 9.0, Magnesium Level 1.8 Differential Diagnosis bronchitis, pneumonia, asthma, reactive airways disease, PE, CHF Narrative Course Patient is placed on lead custodian continuous pulse oximetry and 4 L/m nasal cannula supplemental oxygen DuoNeb updrafts ordered 3 along with Solu-Medrol 125 mg IV blood cultures and lactic acid ordered Patient noted symptomatic relief after DuoNeb updrafts White count is elevated 22,000 and chest x-ray shows right upper lobe infiltrate patient administered Rocephin 2 g IV piggyback and azithromycin 500 mg IV piggyback for the acquired pneumonia Patient's case discussed with on-call medicine service will admit for sepsis and pneumonia Critical Care Narrative Aggregate critical care time was 30 minutes. Time to perform other separately billable procedures was not included in the critical care time. My time did not include minutes spent treating any other patients simultaneously or on activities that did not directly contribute to the patient's treatment. The services I provided to this patient were to treat and/or prevent clinically significant deterioration that could result in: Respiratory failure, septic shock, I provided critical care services requiring my management, as noted below: Chart data review, documentation time, medication orders and management, vital sign assessments/reviewing monitor data, ordering and reviewing lab tests, ordering and interpreting/reviewing x-rays and diagnostic studies, care of the patient and discussion of the patient with the admitting physicians. Sepsis Criteria SIRS Criteria (2 or more): Heart rate over 90, WBC > 18254, < 4000 or > 10% bands Sepsis Criteria (SIRS+source): Infect source susp/known (RUL infiltrate/ pneumonia) Criteria Outcome: Meets sepsis criteria Physician Communication Physician Communication discussed with Dr Nj --admit Diagnosis Primary Impression: Sepsis Additional Impression: Pneumonia Admitting Information Admitting Physician Requests: Admit Millie Benítez MD Nov 24, 2017 22:28
[2017-11-24] MEDS ORDERED: SODIUM CHLORIDE 0.9% FLUSH 10 ML FLUSH IVF PRN (22:30)
[2017-11-24] MEDS ORDERED: methylPREDNISolone SOD SUCC 125 MG/2 ML VIAL IV PUSH ONE (22:30)
[2017-11-24] MEDS: RESP: ALBUTEROL 2.5 MG/IPRATROPIUM 0.5 MG NEB (SCH) INH ×2 (22:38→22:39)
--- NOTE | 2017-11-24 22:46 | RADRPT ---
EXAM DATE/TIME: 11/24/2017 22:33 [facility] COMPARISON: CHEST SINGLE AP, July 21, 2017, 23:32. INDICATIONS : Shortness of breath for one week. MEDICAL HISTORY : None. SURGICAL HISTORY : None. ENCOUNTER: Initial ACUITY: 1 week PAIN SCORE: 0/10 LOCATION: Bilateral chest FINDINGS: A single view of the chest demonstrates focal opacity in the right apex lung paratracheal region. Claire gs are otherwise clear. The cardiomediastinal contours are unremarkable. Osseous structures are inta ct. CONCLUSION: Right upper lobe airspace disease. Sanchez Gonzalez MD on November 24, 2017 at 22:42 Board Certified Radiologist. This report was verified electronically.
[2017-11-24 22:58] LABS: AUTOMATED NEUTROPHIL # 19.7 TH/MM3 (1.8-7.7); BASOPHIL # 0.1 TH/MM3 (0-0.2); BASOPHIL % 0.4 % (0.0-2.0); EOSINOPHIL # 0.2 TH/MM3 (0-0.4); HEMATOCRIT 38.7 % (35.0-46.0); HEMOGLOBIN 12.8 GM/DL (11.6-15.3); LYMPHOCYTE # 1.6 TH/MM3 (1.0-4.8); MEAN CELL VOLUME 83.7 FL (80.0-100.0); MEAN CORPUSCULAR HEMOGLOBIN 27.8 PG (27.0-34.0); MEAN CORPUSCULAR HGB CONC 33.2 % (32.0-36.0); MEAN PLATELET VOLUME 8.8 FL (7.0-11.0); MONOCYTE # 0.9 TH/MM3 (0-0.9); NEUT % 87.6 % (16.0-70.0); PLATELET COUNT 259 TH/MM3 (150-450); RED BLOOD COUNT 4.62 MIL/MM3 (4.00-5.30); RED CELL DISTRIBUTION WIDTH 14.8 % (11.6-17.2); WHITE BLOOD COUNT 22.5 TH/MM3 (4.0-11.0)
[2017-11-24] MEDS ORDERED: cefTRIAXone INJ 2,000 MG in SODIUM CHLORIDE 0.9% INJ 100 ML IV ONE (23:15)
[2017-11-24] MEDS ORDERED: SODIUM CHLOR 0.9% 1000 ML INJ 1,000 ML IV ONE (23:15)
[2017-11-24] MEDS ORDERED: AZITHROMYCIN INJ 500 MG in SODIUM CHLOR 0.9% 250 ML INJ 250 ML IV ONE (23:15)
[2017-11-24 23:30] LABS: TROPONIN I LESS THAN 0.02 NG/ML (0.02-0.05)
[2017-11-24 23:33] LABS: BICARBONATE 21.6 MEQ/L (21.0-32.0); BLOOD UREA NITROGEN 12 MG/DL (7-18); CHLORIDE 105 MEQ/L (98-107); CREATININE 0.57 MG/DL (0.50-1.00); GLOMERULAR FILTRATION RATE 144 ML/MIN (>89); GLUCOSE,RANDOM 115 MG/DL (74-106); MAGNESIUM 1.8 MG/DL (1.5-2.5); SODIUM (NA) 134 MEQ/L (136-145)
[2017-11-25] VITALS (25 sets, daily range): BP systolic 131–174; BP diastolic 65–88; PULSE 69–116; RESP 19–30; TEMP 97.6–98.3; O2SAT 93–98
[2017-11-25] MEDS ORDERED: BISACODYL 10 MG SUPP RECTAL PRN
[2017-11-25] MEDS ORDERED: MAGNESIUM HYDROXIDE SUSP 30 ML CUP PO PRN
[2017-11-25] MEDS ORDERED: RESP: ALBUTEROL 2.5 MG/IPRATROPIUM 0.5 MG NEB (PRN) NEB
[2017-11-25] MEDS ORDERED: LACTULOSE SYRUP 20 GM/30 ML CUP PO PRN
[2017-11-25] MEDS ORDERED: ACETAMINOPHEN 325 MG TAB PO PRN
[2017-11-25] MEDS ORDERED: SENNOSIDES 8.6 MG TAB PO PRN
[2017-11-25] MEDS ORDERED: ONDANSETRON HCL 4 MG/2 ML VIAL IVP PRN
[2017-11-25] MEDS ORDERED: ACETAMINOPHEN/HYDROcodone 325 MG/5 MG TAB PO PRN
[2017-11-25] MEDS ORDERED: ACETAMINOPHEN/HYDROcodone 325 MG/10 MG TAB PO PRN
[2017-11-25] MEDS ORDERED: SODIUM CHLORIDE 0.9% FLUSH 10 ML FLUSH IV FLUSH PRN
--- NOTE | 2017-11-25 01:12 | HHI.HP ---
[facility] Donn [facility]ang, Admission Diagnosis pneumonia; sepsis Diagnoses: (1) Sepsis Diagnosis: Principal (2) PNA (pneumonia) Diagnosis: Principal (3) Reactive airway disease Diagnosis: Principal Travel History International Travel<30 Days: No Contact w/Intl Traveler <30 Da: No Traveled to Known Affected Are: No History of Present Illness This is a 37-year-old female with no significant PMH of present ER with complaints of SOB and cough. States symptoms started approx 1 wk ago, had productive cough w/ yellow-colored sputum at that time, now dry cough x2 days. Reports SOB, worse w/ exertion, moderate severity. Denies fever, chills or sick contacts. On arrival, BP 175/94, HR 118, O2 sat 85% on RA in Triage, Afebrile. WBC 22.5. Chemistry essentially unremarkable. Lactic Acid normal. CXR with right upper lobe airspace disease. S/p Blood Cultures, Rocephin/ Zithro in ER. +wheezing, s/p Solu-Medrol and DuoNeb w/ some improvement. Review of Systems Except as stated in HPI: all other systems reviewed are Neg ROS: 14 point review of systems otherwise negative. Past Family Social History Past Medical History PMH: None Past Surgical History PAST SURGICAL HISTORY: Allergies: Coded Allergies: No Known Allergies (Unverified Allergy, Unknown, 11/25/17) Family History PAST FAMILY HISTORY: Reviewed. No h/o DM or CAD Social History PAST SOCIAL HISTORY: Occasional alcohol. Negative for tobacco or drugs. Physical Exam Vital Signs Vital Signs Date Time Temp Pulse Resp B/P (MAP) Pulse Ox O2 Delivery O2 Flow Rate FiO2 11/25/17 00:45 94 2.00 11/25/17 00:45 98 Nasal Cannula 2.00 11/25/17 00:00 104 30 174/82 (112) 95 Nasal Cannula 4.00 11/24/17 22:27 95 Nasal Cannula 4.00 11/24/17 22:24 38 95 Nasal Cannula 4.00 11/24/17 22:08 97.9 118 24 175/94 (121) 92 Room Air Physical Exam PE: GENERAL: Pleasant young female in no acute distress. HEENT: PERRLA, EOMI. No scleral icterus or conjunctival pallor. No lid lag or facial droop. CARDIOVASCULAR: Regular rate and rhythm. No obvious murmurs to auscultation. No chest tenderness to palpation. RESPIRATORY: No obvious rhonchi. Diffuse wheezing. Breath sounds equal bilaterally. GASTROINTESTINAL: Abdomen soft, non-tender, nondistended. BS normal. MUSCULOSKELETAL: Extremities without clubbing, cyanosis, or edema. No obvious deformities. NEUROLOGICAL: Awake, alert and oriented x4. No focal neurologic deficits. Moving both upper and lower extremities spontaneously. Laboratory Laboratory Tests Test 11/24/17 22:30 11/24/17 23:30 White Blood Count 22.5 Red Blood Count 4.62 Hemoglobin 12.8 Hematocrit 38.7 Mean Corpuscular Volume 83.7 Mean Corpuscular Hemoglobin 27.8 Mean Corpuscular Hemoglobin Concent 33.2 Red Cell Distribution Width 14.8 Platelet Count 259 Mean Platelet Volume 8.8 Neutrophils (%) (Auto) 87.6 Lymphocytes (%) (Auto) 7.0 Monocytes (%) (Auto) 4.0 Eosinophils (%) (Auto) 1.0 Basophils (%) (Auto) 0.4 Neutrophils # (Auto) 19.7 Lymphocytes # (Auto) 1.6 Monocytes # (Auto) 0.9 Eosinophils # (Auto) 0.2 Basophils # (Auto) 0.1 CBC Comment DIFF FINAL Differential Comment Blood Urea Nitrogen 12 Creatinine 0.57 Random Glucose 115 Calcium Level 9.0 Magnesium Level 1.8 Sodium Level 134 Potassium Level 4.1 Chloride Level 105 Carbon Dioxide Level 21.6 Anion Gap 7 Estimat Glomerular Filtration Rate 144 Troponin I LESS THAN 0.02 B-Type Natriuretic Peptide 10 Lactic Acid Level 0.8 Date/Time Source Procedure Growth Status 11/24/17 22:40 Blood Peripheral Aerobic Blood Culture Pending Received 11/24/17 22:40 Blood Peripheral Anaerobic Blood Culture Pending Received 11/24/17 22:40 Nasal Washing Influenza Types A,B Antigen (ERASMO) - Final NEGATIVE FOR FLU A AND B ANTIGEN.... Complete Result Diagram: 11/24/17222911/24/172229 Caprini VTE Risk Assessment Caprini VTE Risk Assessment: No/Low Risk (score <= 1) Caprini Risk Assessment Model Point Value = 1 Point Value = 2 Point Value = 3 Point Value = 5 Age 41-60 Minor surgery BMI > 25 kg/m2 Swollen legs Varicose veins or History of unexplained or recurrent spontaneous Oral contraceptives or hormone replacement Sepsis (< 1 month) Serious lung disease, including pneumonia (< 1 month) Abnormal pulmonary function Acute myocardial infarction Congestive heart failure (< 1 month) History of inflammatory bowel disease Medical patient at bed rest Age 61-74 Arthroscopic surgery Major open surgery (> 45 min) Laparoscopic surgery (> 45 min) Malignancy Confined to bed (> 72 hours) Immobilizing plaster cast Central venous access Age >= 75 History of VTE Family history of VTE Factor V Leiden Prothrombin [id number] Lupus anticoagulant Anticardiolipin antibodies Elevated serum homocysteine Heparin-induced thrombocytopenia Other congenital or acquired thrombophilia Stroke (< 1 month) Elective arthroplasty Hip, pelvis, or leg fracture Acute spinal cord injury (< 1 month) Prophylaxis Regimen Total Risk Factor Score Risk Level Prophylaxis Regimen 0-1 Low Early ambulation 2 Moderate Order ONE of the following: *Sequential Compression Device (SCD) *Heparin 5000 units SQ BID 3-4 Higher Order ONE of the following medications: *Heparin 5000 units SQ TID *Enoxaparin/Lovenox 40 mg SQ daily (WT < 150 kg, CrCl > 30 mL/min) *Enoxaparin/Lovenox 30 mg SQ daily (WT < 150 kg, CrCl > 10-29 mL/min) *Enoxaparin/Lovenox 30 mg SQ BID (WT < 150 kg, CrCl > 30 mL/min) AND/OR *Sequential Compression Device (SCD) 5 or more Highest Order ONE of the following medications: *Heparin 5000 units SQ TID (Preferred with Epidurals) *Enoxaparin/Lovenox 40 mg SQ daily (WT < 150 kg, CrCl > 30 mL/min) *Enoxaparin/Lovenox 30 mg SQ daily (WT < 150 kg, CrCl > 10-29 mL/min) *Enoxaparin/Lovenox 30 mg SQ BID (WT < 150 kg, CrCl > 30 mL/min) AND *Sequential Compression Device (SCD) Assessment and Plan Problem List: (1) Sepsis ICD Code: A41.9 - Sepsis, unspecified organism Status: Acute (2) PNA (pneumonia) ICD Code: J18.9 - Pneumonia, unspecified organism (3) Reactive airway disease ICD Code: J45.909 - Unspecified asthma, uncomplicated Assessment and Plan A/P: 1. Sepsis: HR 118, WBC 22, Source-PNA. S/p Blood Cultures, Rocephin/Zithro in ER. Follow up cultures, continue IV Abx. 2. PNA: CXR w/ RUL PNA, images reviewed by me. Continue Rocephin/Zithro IV. Check Sputum cultures, follow up blood cultures. 3. Reactive Airway Disease: +wheezing on exam, secondary to above, +SOB. DuoNeb prn, Solu-Medrol, Symbicort, Mucinex. 4. DVT Prophylaxis: SCD/Teds. 5. Social work for d/c planning as needed 6. Records/labs/imaging reviewed by me, case discussed at length w/ ER physician . Physician Certification 2 Midnight Certification Type: Admission for Inpatient Services Order for Inpatient Services The services are ordered in accordance with Medicare regulations or non- Medicare payer requirements, as applicable. In the case of services not specified as inpatient-only, they are appropriately provided as inpatient services in accordance with the 2-midnight benchmark. Estimated LOS (days): 2 days is the estimated time the patient will need to remain in the hospital, assuming treatment plan goals are met and no additional complications. Post-Hospital Plan: Not yet determined Jessica Nj MD Nov 25, 2017 01:12
[2017-11-25] MEDS: SODIUM CHLOR 0.9% 1000 ML INJ 1,000 ML IV SCH ×3 (01:21→21:06)
[2017-11-25] MEDS ORDERED: RESP: ALBUTEROL 2.5 MG/IPRATROPIUM 0.5 MG NEB (SCH) NEB ONE (01:45)
[2017-11-25] MEDS: methylPREDNISolone SOD SUCC 40 MG/1 ML VIAL IV PUSH SCH ×5 (06:06→23:17)
[2017-11-25] MEDS: guaiFENesin E.R. 600 MG TAB PO SCH ×2 (08:47→20:39)
[2017-11-25] MEDS: SODIUM CHLORIDE 0.9% FLUSH 10 ML FLUSH IV FLUSH SCH ×2 (08:47→20:39)
[2017-11-25] MEDS: BUDESONIDE-FORMOTEROL 160/4.5 MCG INHALER INH SCH ×2 (08:47→20:38)
[2017-11-25] MEDS: DOCUSATE SODIUM 50 MG/SENNA 8.6 MG TAB PO SCH ×2 (08:50→20:39)
[2017-11-25 16:46] LABS: AUTOMATED NEUTROPHIL # 16.2 TH/MM3 (1.8-7.7); BASOPHIL % 0.1 % (0.0-2.0); HEMATOCRIT 38.1 % (35.0-46.0); HEMOGLOBIN 12.9 GM/DL (11.6-15.3); LYMPH % 6.8 % (9.0-44.0); LYMPHOCYTE # 1.2 TH/MM3 (1.0-4.8); MEAN CELL VOLUME 84.1 FL (80.0-100.0); MEAN CORPUSCULAR HEMOGLOBIN 28.5 PG (27.0-34.0); MEAN CORPUSCULAR HGB CONC 33.9 % (32.0-36.0); MEAN PLATELET VOLUME 9.2 FL (7.0-11.0); MONO % 2.7 % (0.0-8.0); MONOCYTE # 0.5 TH/MM3 (0-0.9); NEUT % 90.4 % (16.0-70.0); PLATELET COUNT 302 TH/MM3 (150-450); RED BLOOD COUNT 4.53 MIL/MM3 (4.00-5.30); RED CELL DISTRIBUTION WIDTH 14.6 % (11.6-17.2); WHITE BLOOD COUNT 17.9 TH/MM3 (4.0-11.0)
[2017-11-25 17:09] LABS: ALBUMIN 3.2 GM/DL (3.4-5.0); ALKALINE PHOSPHATASE 90 U/L (45-117); ALT (GPT) 15 U/L (10-53); AST (GOT) 4 U/L (15-37); BICARBONATE 18.8 MEQ/L (21.0-32.0); BLOOD UREA NITROGEN 11 MG/DL (7-18); CALCIUM 8.7 MG/DL (8.5-10.1); CHLORIDE 110 MEQ/L (98-107); GLOMERULAR FILTRATION RATE 114 ML/MIN (>89); GLUCOSE,RANDOM 236 MG/DL (74-106); SODIUM (NA) 139 MEQ/L (136-145); TOTAL BILIRUBIN ADULT 0.2 MG/DL (0.2-1.0); TOTAL PROTEIN 7.6 GM/DL (6.4-8.2)
--- NOTE | 2017-11-25 18:16 | EKG ---
Date Performed: 11/24/2017 Time Performed: 22:31:34 PTAGE: 37 years EKG: SINUS TACHYCARDIA ABNORMAL RHYTHM ECG NO PREVIOUS TRACING DOCTOR: Nita Carbone Interpretating Date/Time 11/25/2017 18:15:11
[2017-11-25] MEDS ORDERED: cefTRIAXone INJ 1,000 MG in SODIUM CHLORIDE 0.9% INJ 100 ML IV SCH (23:00)
[2017-11-25] MEDS: AZITHROMYCIN INJ 500 MG in SODIUM CHLOR 0.9% 250 ML INJ 250 ML IV SCH ×3 (23:17)
[2017-11-26] VITALS (10 sets, daily range): BP systolic 136–145; BP diastolic 69–70; PULSE 57–80; RESP 17–19; TEMP 97.9–98; O2SAT 97–98
[2017-11-26] MEDS: methylPREDNISolone SOD SUCC 40 MG/1 ML VIAL IV PUSH SCH (05:39)
[2017-11-26 05:54] LABS: HEMATOCRIT 36.1 % (35.0-46.0); MEAN CELL VOLUME 83.9 FL (80.0-100.0); MEAN CORPUSCULAR HGB CONC 33.3 % (32.0-36.0); MEAN PLATELET VOLUME 9.3 FL (7.0-11.0); PLATELET COUNT 261 TH/MM3 (150-450); RED BLOOD COUNT 4.31 MIL/MM3 (4.00-5.30); RED CELL DISTRIBUTION WIDTH 14.8 % (11.6-17.2); WHITE BLOOD COUNT 19.2 TH/MM3 (4.0-11.0)
[2017-11-26 06:19] LABS: BICARBONATE 19.8 MEQ/L (21.0-32.0); CALCIUM 8.5 MG/DL (8.5-10.1); CREATININE 0.52 MG/DL (0.50-1.00)
[2017-11-26] MEDS ORDERED: PRED20 PO (08:00)
[2017-11-26] MEDS ORDERED: AZIT500T2 PO (08:00)
[2017-11-26] MEDS ORDERED: CEFU1TAB20 PO (08:00)
[2017-11-26] MEDS ORDERED: BENZ1CAP54 PO (08:01)
--- NOTE | 2017-11-26 08:01 | HHI.PR ---
Subjective Remarks Patient reports a significantly improved. On room air. Coughing has improved. Afebrile. Anxious to go home. Objective Vitals Vital Signs Date Time Temp Pulse Resp B/P (MAP) Pulse Ox O2 Delivery O2 Flow Rate FiO2 11/26/17 07:00 68 11/26/17 06:27 57 11/26/17 05:45 80 11/26/17 04:06 60 11/26/17 03:35 98.0 77 17 145/69 (94) 98 11/26/17 03:35 74 11/26/17 02:02 70 11/26/17 01:28 65 11/26/17 00:00 70 11/25/17 23:26 72 11/25/17 23:26 98.3 73 19 165/88 (113) 97 11/25/17 22:12 69 11/25/17 21:43 88 11/25/17 20:03 88 11/25/17 19:20 95 11/25/17 19:20 97.6 92 20 155/77 (103) 98 11/25/17 18:00 96 11/25/17 17:00 100 11/25/17 16:15 97.8 106 19 163/86 (111) 93 11/25/17 16:00 108 11/25/17 15:00 116 11/25/17 14:00 100 11/25/17 13:00 98 11/25/17 12:00 96 11/25/17 11:24 98.2 105 19 133/65 (87) 95 11/25/17 11:00 109 11/25/17 10:00 106 11/25/17 09:00 95 11/25/17 08:05 98.0 97 19 131/73 (92) 98 I/O 11/25/17 11/25/17 11/25/17 11/26/17 11/26/17 11/26/17 07:00 15:00 23:00 07:00 15:00 23:00 Intake Total 1590 ml 960 ml 940 ml Output Total 500 ml 1000 ml Balance 1090 ml -40 ml 940 ml Intake Oral 240 ml 960 ml 840 ml IV Total 1350 ml 100 ml Output Urine Total 500 ml 1000 ml # Voids 5 # Bowel Movements 1 Result Diagram: 11/26/1752111/26/17521 Objective Remarks GENERAL: This is a well-nourished, well-developed patient, in no apparent distress. CARDIOVASCULAR: Normal rate and regular rhythm without murmurs, gallops, or rubs. RESPIRATORY: Good respiratory efforts. Breath sounds equal and clear to auscultation bilaterally. GASTROINTESTINAL: Abdomen soft, non-tender, non-distended. Normal active bowel sounds MUSCULOSKELETAL: Extremities without cyanosis, or edema. NEURO: Alert & Oriented x4 to person, place, time, situation. Moves all ext x4 PSYCH: Appropriate mood and affect. A/P Problem List: (1) Sepsis ICD Code: A41.9 - Sepsis, unspecified organism Status: Acute (2) PNA (pneumonia) ICD Code: J18.9 - Pneumonia, unspecified organism (3) Reactive airway disease ICD Code: J45.909 - Unspecified asthma, uncomplicated Assessment and Plan 37-year-old female admitted with sepsis secondary to pneumonia. The patient was found to be wheezing on admission. She was treated with IV Rocephin, azithromycin and Solu-Medrol. She was also given 2 nebs treatment. The patient significantly improved. She is discharged in good condition on oral antibiotics and prednisone to complete the course of treatment. Blood cultures negative at 48 hours. Discharge Planning Discharge home in good condition Diet: Regular Activity: Regular as tolerated Meds: Per med rec Follow-up with: PCP Ric Moe MD Nov 26, 2017 08:01
--- NOTE | 2017-11-26 08:01 | HHI.DCPOC ---
Discharge Care Plan Diagnosis: (1) Pneumonia (2) Reactive airway disease (3) Sepsis Goals to Promote Your Health * To prevent worsening of your condition and complications * To maintain your health at the optimal level Directions to Meet Your Goals Take your medications as prescribed Follow your dietary instruction Follow activity as directed Keep your appointments as scheduled Take your immunizations and boosters as scheduled If your symptoms worsen call your PCP, if no PCP go to Urgent Care Center or Emergency Room Smoking is Dangerous to Your Health. Avoid second hand smoke Call the 24-hour hour crisis hotline for domestic abuse at Ric Moe MD Nov 26, 2017 08:01
[2017-11-26] MEDS: BUDESONIDE-FORMOTEROL 160/4.5 MCG INHALER INH SCH (08:33)
[2017-11-26] MEDS: guaiFENesin E.R. 600 MG TAB PO SCH (08:33)
[2017-11-26] MEDS: DOCUSATE SODIUM 50 MG/SENNA 8.6 MG TAB PO SCH (08:33)
== END 2017-11-26 09:09 | disposition home or self-care (01) | DRG 871 ==
LOC: NEPC 22:06 → NEDA 23:56 → HCPC 11-25 03:09
PROVIDERS: ADMIT Family Medicine; ATTEND Family Medicine
DX: A41.9 Sepsis, unspecified organism (principal); J18.9 Pneumonia, unspecified organism; J45.909 Unspecified asthma, uncomplicated
CPT/HCPCS: 71045; 80048; 80053; 83605; 83735; 83880; 84484; 85025; 85027; 87040; 87804; 93005; 94640; 94664; 96374; 96375; J0456; J0696; J2920; J2930; J7030; J7050